=== PATIENT | male | born 1950 | race Caucasian/White ===

== ENCOUNTER 2019-04-26 18:38 | Emergency (ER) | payer MEDICARE, BC ==
[~2019-04-26] VITALS: Ht 177.8 cm; Wt 81.8 kg
--- NOTE | 2019-04-26 19:10 | NUR ---
PT IS IN XRAY
[2019-04-26] MEDS ORDERED: HYDROcodone/acetaminophen 10/325mg tab PO STA (19:39)
--- NOTE | 2019-04-26 19:41 | NUR ---
PT IS 68 YO MALE S/O FALL OFF OF LADDER APPROX 6 1/2 FEET 2 HOURS AGO, NO LOC, NOT ON BLOOD THINNERS, PT C/O RT WRIST PAIN, LEFT ANKLE PAIN, +CMS TO RT WRIST AND LEFT ANKLE, FAMILY AT BEDSIDE
[2019-04-26] MEDS ORDERED: HYDR-3965 PO (20:41)
--- NOTE | 2019-04-26 21:25 | NUR ---
BILATERAL THUMB SPICA AND CHEMA SPLINT BY John MIRANDA( [facility]) DONE, CHECKED BY DR VALENCIA, MARCUS FOR DC HOME
[2019-04-26 21:35] VITALS: BP 143/75
== END 2019-04-26 21:37 | disposition home or self-care (01) ==
LOC: ER 18:39
DX: S92.011A Displaced fracture of body of right calcaneus, initial encounter for closed fracture (principal); S09.90XA Unspecified injury of head, initial encounter; S92.251A Displaced fracture of navicular [scaphoid] of right foot, initial encounter for closed fracture; Z88.8 Allergy status to other drugs, medicaments and biological substances; Z79.899 Other long term (current) drug therapy; W11.XXXA Fall on and from ladder, initial encounter; Y93.89 Activity, other specified; Y92.89 Other specified places as the place of occurrence of the external cause; Y99.8 Other external cause status
CPT/HCPCS: 29125; 70450; 73110; 73610; 73650; 99284

== ENCOUNTER 2019-05-12 05:23 | Observation (INO) | payer MEDICARE, BC ==
[2019-05-11 10:49] LABS: BASOPHILS % (AUTO) 0.5 % (0-1); EOSINOPHILS # (AUTO) 0.1 X10'3 (0-0.9); EOSINOPHILS % (AUTO) 1.6 % (0-6); LYMPHOCYTES # (AUTO) 1.8 X10'3 (1.1-4.8); LYMPHOCYTES % (AUTO) 22.1 % (21-51); MEAN CORPUSCULAR HEMOGLOBIN 31.3 PG (27.0-31.0); MEAN PLATELET VOLUME 6.6 FL (7.4-10.4); MONOCYTES # (AUTO) 0.9 X10'3 (0-0.9); MONOCYTES % (AUTO) 10.8 % (2-12); NEUTROPHILS # (AUTO) 5.4 X10'3 (1.8-7.7); PRE OP HEMATOCRIT 51.7 % (42.0-52.0); PRE OP HEMOGLOBIN 17.6 g/dL (14.0-17.9); PRE OP PLATELET COUNT 285 X10'3 (140-440); RED BLOOD COUNT 5.63 X10'6 (4.70-6.10); RED CELL DISTRIBUTION WIDTH 13.8 % (11.5-14.5)
[2019-05-11 11:00] LABS: PRE OP PROTIME 10.2 SECONDS (9.0-12.0)
[2019-05-11 11:02] LABS: ALBUMIN 3.8 G/DL (3.4-5.0); ALBUMIN/GLOBULIN RATIO 0.9 (1.1-1.5); ALKALINE PHOSPHATASE 123 IU/L (46-116); BLOOD UREA NITROGEN 16 MG/DL (7-18); BUN/CREATININE RATIO 12.7 (5.4-32.0); CHLORIDE 105 MMOL/L (99-107); CREATININE 1.26 MG/DL (0.60-1.10); PRE OP ALT 39 U/L (30-65); PRE OP ANION GAP 5 (8-16); PRE OP AST 22 U/L (10-37); PRE OP BILIRUB, TOTAL 0.6 MG/DL (0.0-1.0); PRE OP GLUCOSE 88 MG/DL (70-104); PRE OP POTASSIUM 4.3 MMOL/L (3.4-5.1); PRE OP SODIUM 140 MMOL/L (135-145); TOTAL CARBON DIOXIDE 29.7 MMOL/L (24-32); eGFR 57 ML/MIN
[2019-05-12] VITALS (18 sets, daily range): BP systolic 96–187; BP diastolic 55–99
[~2019-05-12] VITALS: Ht 177.8 cm; Wt 84.0 kg
[~2019-05-12 05:23] MED LIST: NO HOME MEDS
[2019-05-12] MEDS ORDERED: cefazolin/dext.iso 2gm/100ml 100 ML IV ONE (05:30)
[2019-05-12] MEDS ORDERED: famotidine 20mg tablet PO ONE (05:30)
[2019-05-12] MEDS ORDERED: vancomycin 1,500 MG in NS 500ml IV soln IV ONE (05:30)
[2019-05-12] MEDS: ringers solution, lacted 1,000 ML IV SCH ×2 (06:19→11:19)
[2019-05-12] MEDS ORDERED: ceFAZolin 1000mg inj ONE (06:57)
[2019-05-12] MEDS ORDERED: BUPIVAcaine/PF 2.5 mg/ml (0.25%) 30ml vial ONE (06:57)
[2019-05-12] MEDS ORDERED: fentaNYL/PF 50MCG/1 ML 2ML syringe ONE (07:15)
[2019-05-12] MEDS ORDERED: MIDAZolam 5mg/5ml vial ONE (07:16)
[2019-05-12] MEDS ORDERED: propofol inj 20 ML IV ONE (07:40)
[2019-05-12] MEDS ORDERED: diphenhydrAMINE 50 mg/ml inj ONE (07:50)
[2019-05-12] MEDS ORDERED: ringers solution, lacted 1,000 ML IV SCH (07:52)
[2019-05-12] MEDS ORDERED: meperidine/PF 25mg/ml syringe IV PRN ×3 (07:55)
[2019-05-12] MEDS ORDERED: proCHLORperazine 10 MG/2 ml inj IV PRN (07:55)
[2019-05-12] MEDS ORDERED: ondansetron/PF 4mg/2ml inj IV PRN ×2 (07:55→10:20)
[2019-05-12] MEDS ORDERED: morphine 2 MG/ML inj. syringe IV PRN (07:55)
[2019-05-12] MEDS ORDERED: morphine 4 MG/ML inj SYRINge IV PRN (07:55)
[2019-05-12] MEDS ORDERED: LIDOcaine 2% (20mg/ml) 5ml vial ONE (09:45)
[2019-05-12] MEDS ORDERED: acetaminophen 1,000mg/100ml IV 100 ML IV ONE (10:02)
[2019-05-12] MEDS ORDERED: TRANEXAMIC ACID 1 GM IN NACL,ISO-OS 100 ML IV ONE (10:05)
--- NOTE | 2019-05-12 10:07 | NUR ---
Received from OR via ORTHO BED WITH NMRAVEN , accompanied by Anesthesiologist JACQUELINE and report given by Anesthesiolgist. PATIENT WITH 20G PIV IN LEFT UE RUNNING LR AT 100. DENIES PAIN AT THIS TIME. LEFT FOOT IN SPLINT. + CAP REFILL TO EXPOSED TOES. ELEVATED FOOT OF BED. PATIENT WITH SCD TO RIGHT LE. VSS AT THIS TIME. Addendum: 05/12/19 at 1030 by Edwin Everett RN, RN Amended: Links added.
[2019-05-12] MEDS ORDERED: magnesium hydroxide 30ml (MOM) UD suspension PO PRN (10:20)
[2019-05-12] MEDS ORDERED: diphenhydrAMINE 25mg capsule PO PRN ×2 (10:20)
[2019-05-12] MEDS ORDERED: bisacodyl 10mg suppository rectal RC PRN (10:20)
[2019-05-12] MEDS ORDERED: HYDROmorphone 1 mg/ml syringe IV PRN (10:20)
[2019-05-12] MEDS ORDERED: acetaminophen 325mg tablet PO PRN (10:20)
[2019-05-12] MEDS ORDERED: HYDROcodone/acetaminophen 10/325mg tab PO PRN (10:20)
--- NOTE | 2019-05-12 10:57 | NUR ---
ALL CRITERIA FOR TRANSFER TO THE FLOOR HAS BEEN ACHIEVED. VSS. BED LOW, CALL LIGHT AND VS. SET IN PLACE. RN PRESENT TO ACCEPT CARE. PATIENT RESTING COMFORTABLY IN BED. BELONGINGS SENT WITH PATIENT. DRESSINGS CDI. SARBJIT MCLAIN PRESENT TO ACCEPT CARE. ONE BAG OF BELONGINGS DELIVERED TO Huey B FAMILY AT BEDSIDE. Addendum: 05/12/19 at 1204 by Edwin Quinones - SARBJIT SCHAFFER Amended: Links added.
[2019-05-12] MEDS: HYDROcodone/acetaminophen 10/325mg tab PO PRN ×2 (12:33→20:37)
[2019-05-12] MEDS: potassium Cl 20mEq in NS 1,000 ML IV SCH ×2 (15:47→23:38)
[2019-05-12] MEDS: aspirin 81mg tablet.DR PO SCH (16:37)
[2019-05-12] MEDS: ceFAZolin 1GM/D5W- ADD-VANTAGE 50 ML IV SCH (16:44)
--- NOTE | 2019-05-12 17:16 | NUR ---
MD Soto made aware of patient increased blood pressure. Does not want to give hypertension medications at this time. Recommends to keep pain under control.
--- NOTE | 2019-05-12 18:14 | NUR ---
Problems reprioritized. Patient report given, questions answered & plan of care reviewed with Serena SCHAFFER.
--- NOTE | 2019-05-12 18:14 | NUR ---
Patient in room ORTHO 4012. I have received report from Naida and had the opportunity to ask questions and assume patient care.
[2019-05-12] MEDS ORDERED: vancomycin/NS 1 GM ADD-VANTAGE 250 ML IV SCH (20:00)
[2019-05-12] MEDS ORDERED: sennosides 8.6mg tablet PO SCH (21:00)
[2019-05-13] VITALS: BP 148/82
--- NOTE | 2019-05-13 00:04 | NUR ---
Problems reprioritized. Patient report given, questions answered & plan of care reviewed with Cathie SCHAFFER.
[2019-05-13] MEDS: ceFAZolin 1GM/D5W- ADD-VANTAGE 50 ML IV SCH (00:40)
[2019-05-13] MEDS: HYDROcodone/acetaminophen 10/325mg tab PO PRN ×3 (04:32→13:13)
[2019-05-13 06:00] VITALS: BP 157/82
[2019-05-13] MEDS: aspirin 81mg tablet.DR PO SCH (07:21)
[2019-05-13] MEDS: potassium Cl 20mEq in NS 1,000 ML IV SCH (08:52)
[2019-05-13 09:11] VITALS: BP 159/82
[2019-05-13 14:00] VITALS: BP 148/77
--- NOTE | 2019-05-13 15:43 | NUR ---
Patient stable for discharge home. PIV removed, cannula intact. Prescription and belongings sent home with patient.
--- NOTE | 2019-05-17 11:14 | NUR ---
Case Management DC follow up: spoke to pt via telephone. Reports feeling "as good as someone can feel after surgery", "feel good". Denies CP, emergent general pain, SOB, respiratory distress, NV, dizziness, syncope episodes, abd pain, WOOD[place], blurry vision. Denies swelling, acute pain to surg site/L heel, remains afebrile. Verbalizes understanding of medications and why prescribed. Taking as ordered, cut Rx [place] in half, r/t causes a little nausea. no ase noted r/t polypharmacy/new meds. verbalizes understanding of s/s that would warrant 9-11/ER visit for evaluation. Acknowledges importance of scheduling/keeping appointments w/PCP/[place] [facility] [place] packet 05[place]19/[place]/referrals/specialists/Dr Soto 05/19/2019. Needs met, questions answered at DC. No further questions at this time.
== END 2019-05-13 14:30 | disposition home or self-care (01) ==
LOC: PAS 05:23 → ORTHO 4S 11:22
PROVIDERS: ADMIT Orthopaedic Surgery; ATTEND Orthopaedic Surgery
DX: S92.062A Displaced intraarticular fracture of left calcaneus, initial encounter for closed fracture (principal); M25.572 Pain in left ankle and joints of left foot; W11.XXXA Fall on and from ladder, initial encounter; Y93.89 Activity, other specified; Y92.89 Other specified places as the place of occurrence of the external cause
CPT/HCPCS: 28420; 36415; 80053; 82948; 85025; 85610; 85730; 93005; 96365; 96366; 96367; 96368; 96375; A6223; C1713; G0378; J0690; J1170; J1200; J2001; J2250; J2405; J2704; J3010; J3370; J3480; J3490; J7040; J7120; A4618; A6449; A7000